=== PATIENT | female | born 1950 | race Caucasian/White ===

== ENCOUNTER → 2016-07-27 | Outpatient (CLI) | payer MEDICARE | LOC: KOH-I 07-04 13:00 | DX: E04.2 Nontoxic multinodular goiter (principal); E04.1 Nontoxic single thyroid nodule; Z88.1 Allergy status to other antibiotic agents | CPT/HCPCS: 76536 ==

== ENCOUNTER → 2016-08-15 | Outpatient (CLI) | payer MEDICARE | LOC: HEART 5 08:53 | DX: I20.9 Angina pectoris, unspecified (principal); R00.2 Palpitations; R07.9 Chest pain, unspecified; R06.00 Dyspnea, unspecified; I35.8 Other nonrheumatic aortic valve disorders; I27.2 Other secondary pulmonary hypertension; I34.0 Nonrheumatic mitral (valve) insufficiency; I34.8 Other nonrheumatic mitral valve disorders; I51.7 Cardiomegaly | CPT/HCPCS: 78452; 93306; A9502; J2785 ==